=== PATIENT | female | born 1970 | race Native Hawaiian/Other Pacific Islander ===

== ENCOUNTER 2017-04-27 08:19 | Outpatient (CLI) | payer BC ==
[2017-04-27 08:40] LABS: POTASSIUM 3.9 mmol/L (3.6-5.2)
[2017-04-27 08:48] LABS: PLATELET COUNT 227 K/uL (152-353)
== END 2017-04-27 18:59 | disposition home or self-care (01) ==
LOC: LABW 08:19
PROVIDERS: Internal Medicine Endocrinology, Diabetes & Metabolism
DX: E10.9 Type 1 diabetes mellitus without complications (principal); E03.8 Other specified hypothyroidism; D64.89 Other specified anemias; Z79.899 Other long term (current) drug therapy; Z51.81 Encounter for therapeutic drug level monitoring
CPT/HCPCS: 36415; 80053; 80061; 82043; 82570; 84443; 85027

== ENCOUNTER 2019-01-27 08:43 | Outpatient (CLI) | payer BC ==
[2019-01-27 09:55] LABS: PLATELET COUNT 280 K/uL (152-353)
== END 2019-01-27 21:36 | disposition home or self-care (01) ==
LOC: LABW 08:43
PROVIDERS: Internal Medicine Endocrinology, Diabetes & Metabolism
DX: D64.9 Anemia, unspecified (principal); E78.5 Hyperlipidemia, unspecified; Z79.899 Other long term (current) drug therapy; E03.9 Hypothyroidism, unspecified; E10.9 Type 1 diabetes mellitus without complications
CPT/HCPCS: 36415; 80053; 80061; 81000; 82043; 82570; 82607; 84436; 84443; 84479; 85027

== ENCOUNTER 2021-06-05 08:20 | Outpatient (CLI) | payer OTHER | END 2021-06-05 19:22 | disposition home or self-care (01) | LOC: US 08:20 | PROVIDERS: ATTEND Internal Medicine Endocrinology, Diabetes & Metabolism | DX: K75.81 Nonalcoholic steatohepatitis (NASH) (principal) ==